=== PATIENT | male | born 2000 | race Caucasian/White ===

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

== ENCOUNTER 2023-09-19 14:32 | Inpatient (IN) | payer OTHER, SELFPAY ==
[2023-09-19 14:41] VITALS: BP 117/64; PULSE 64; RESP 16; TEMP 37; O2SAT 99; BMI 26.7
--- NOTE | 2023-09-19 14:47 | ED.C_ITS ---
HPI - Psych 2 General: Chief Complaint: Psychiatric Symptoms Stated Complaint: mhe Time Seen by Provider: 09/19/23 14:37 History of Present Illness: 23-year-old man with a history of depres griselda is not currently taking medications who presents to the emergency room with expressions of suicidal ideation. 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 Patient says he does not feel suicidal now and he really does not want to stay. We discussed that he has to stay to be evaluated talked with the psychiatrist on-call who says he will need to be admitted at least overnight to be evaluated. Patient agrees to come in under his own accord. He has had no self-harm at this time. He says he had been admitted a long time ago. Review of Systems 2 Narrative: Constitutional symptoms: Negative except as documented in HPI. Skin symptoms: Negative except as documented in HPI. Eye symptoms: Negative except as documented in HPI. ENMT symptoms: Negative except as documented in HPI. Respiratory symptoms: Negative except as documented in HPI. Cardiovascular symptoms: Negative except as documented in HPI. Gastrointestinal symptoms: Negative except as documented in HPI. Genitourinary symptoms: Negative except as documented in HPI. Musculoskeletal symptoms: Negative except as documented in HPI. Neurologic symptoms: Negative except as documented in HPI. Psychiatric symptoms: Negative except as documented in HPI. Endocrine symptoms: Negative except as documented in HPI. PFSH ED 2 PFSH: Social History Current gender identity: Male Physical Exam 2 Narrative: EXAM NARRATIVE: General: Alert, no acute distress. Skin: Warm, dry. Head: Normocephalic, atraumatic. Neck: Supple, trachea midline. Eye: Extraocular movements are intact. Ears, nose, mouth and throat: mucosa moist. Cardiovascular: Regular, Normal peripheral perfusion. Respiratory: Lungs are clear to auscultation, respirations are non-labored, breath sounds are equal, Symmetrical chest wall expansion. Gastrointestinal: Soft, Nontender, Non distended Musculoskeletal: Normal ROM, no deformity. Neurological: Alert and oriented, No focal neurological deficit observed. Psychiatric: Cooperative, appropriate mood & affect. Patient does admit to saying that he was suicidal and having suicidal thoughts earlier but says he does not have any currently. Course 2 Vital Signs: Vital signs: Vital Signs Temperature 98.6 F 09/19/23 14:41 Pulse Rate 61 09/19/23 15:36 Respiratory Rate 16 09/19/23 14:41 Blood Pressure 116/70 09/19/23 15:36 Pulse Oximetry 97 09/19/23 15:36 Oxygen Delivery Me thod Room Air 09/19/23 15:31 MDM - Psych Medical Decision Making Differential diagnosis: Patient with reported depression and suicidal ideation. concerns for infection, alcohol intoxication, cardiac issues or other medical problems prior to psychiatric admission. Workup: labwork ordered to evaluate the pathologies and to clear the patient medically prior to psychiatric admission Lab Review: Laboratory results were reviewed and interpreted by myself the emergency room physician. Lab review: - Medically cleared. - Blood alcohol level is negative, -Tylenol and salicylate levels are negative. - Drug screen is negative - No anemia. - BUN and creatinine are within normal limits. Consultation: I spoke with Dr. Brown who agrees to admission. Assessment and plan: Depression Suicidal ideation -Admission to neuropsychiatric unit for continued evaluation and treatment. - All lab work was reviewed and interpreted personally by myself, the ER physician - Evaluation and treatment of this problem were appropriate in the emergency setting Lab Data 09/19/23 15:46 09/19/23 15:46 Laboratory Results Urine Opiates Screen Negative ng/mL (Negative) 09/19/23 15:21 Ur Barbiturates Screen Negative ng/mL (Negative) 09/19/23 15:21 Ur Phencyclidine Scrn Negative ng/mL (Negative) 09/19/23 15:21 Ur Amphetamines Screen Negative ng/mL (Negative) 09/19/23 15:21 U Benzodiazepines Scrn Negative ng/mL (Negative) 09/19/23 15:21 Urine Cocaine Screen Negative ng/mL (Negative) 09/19/23 15:21 U Marijuana (THC) Screen Negative ng/mL (Negative) 09/19/23 15:21 No radiology studies performed this visit Discharge Plan Discharge Patient Disposition: Admitted As Inpatient Admit Provider: Pablito Brown Clinical Impression: Suicidal ideation Depression Qualifiers: Depression Type: major depressive disorder Major depression recurrence: r ecurrent Active/Remission status: currently active Major depression episode severity: moderate Qualified Code(s): F33.1 - Major depressive disorder, recurrent, moderate Condition: Stable Coding Level of Care Code ED Production Tool Engineer for Vish Jones
[2023-09-19 15:31] VITALS: BP 116/70; PULSE 61; O2SAT 97
[2023-09-19 15:36] VITALS: BP 116/70; PULSE 61; O2SAT 97
[2023-09-19 15:37] LABS: Amphetamines Screen Urine Negative (Negative); Barbiturates Screen Urine Negative (Negative); Benzodiazepines Screen Urine Negative (Negative); Cocaine Screen Urine Negative (Negative); Opiate Screen Urine Negative (Negative); PCP Screen Urine Negative (Negative); THC Screen Urine Negative (Negative)
[2023-09-19 15:53] LABS: Basophils % 0.5 %; Eosinophils % 0.9 %; Hematocrit 45.4 % (37-53); Lymphocytes # 1.1 10^3/uL (0.8-4.8); Lymphocytes % 24.7 %; Mean Corpuscular HGB Conc 33.9 g/dL (30-55); Mean Corpuscular Hemoglobin 32.2 pg (27-33); Mean Corpuscular Volume 94.8 fl (82-101); Mean Platelet Volume 10.1 fL (7.4-10.4); Monocytes # 0.3 10^3/uL (0.2-0.9); Monocytes % 5.9 %; Neutrophils # 3.01 10^3/uL (1.8-7.7); Nucleated Red Blood Cells % 0 %; Platelet Count 190 10^3/cmm (157-399); Red Blood Count 4.79 10^6/uL (3.85-5.65); White Blood Count 4.42 10^3/uL (3.29-11.43)
[2023-09-19 16:13] LABS: Alanine Aminotransferase 26 U/L (0-41); Albumin Level 4.4 g/dL (3.5-5.2); Alkaline Phosphatase 92 U/L (40-130); Aspartate Amino Transferase 20 U/L (0-40); Blood Urea Nitrogen 11 mg/dL (6-20); Calcium 9.1 mg/dL (8.5-10.5); Carbon Dioxide 25 mmol/L (22-29); Chloride 106 mmol/L (98-107); Creatinine Clr Calc Pharmacy 119.2158; Globulin 2.5 g/dL (1.3-4.6); Glomerular Filtration Rate 83.7 mL/min (90-130); Glucose 103 mg/dL (65-115); Osmolality Calculated 290 mOsm/kg (285-295); Sodium 140 mmol/L (136-145); Total Bilirubin 0.6 mg/dL (0.15-1.2); Total Protein 6.9 g/dL (6.6-8.7)
[2023-09-19 16:14] LABS: Acetaminophen < 5.0 ug/mL (10-30); Alcohol Level < 10 mg/dL (0-10); Salicylate < 0.3 mg/dL (3-10)
[2023-09-19 16:15] LABS: Anion Gap 13.7 (5-19); Potassium 4.7 mmol/L (3.5-5.1)
[2023-09-19 16:16] VITALS: BP 121/78; PULSE 56; RESP 16; TEMP 36.4; O2SAT 95
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
[2023-09-19 20:17] VITALS: BP 100/67; PULSE 108; RESP 18; TEMP 36.9; O2SAT 97
[2023-09-20 06:00] VITALS: BP 90/50; PULSE 67; RESP 16; TEMP 37; O2SAT 98
--- NOTE | 2023-09-20 10:00 | PC.NURSE ---
Patient denies anxiety, depression, SI, HI, AVH during morning assessment. Patient said that he doesn't want to be here, that he wants to go home. Patient said that he had one thought of suicide yesterday and talked to his advisor about it. Patient states that the last time he had suicidal thoughts was three years ago. Patient has been at [facility] previously. Patient said that the invega injection he received last time made him dizzy for one week. Patient is not wanting to take medications, says that the only thing he needs is the bible.
--- NOTE | 2023-09-20 10:58 | P.NPUHP_ITS ---
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 the discontinuation of marijuana use who reports having a moment yesterday when he had a suicidal thought that really scared him until he talked to a friend. 1. Continue off of medication and consider whether initiating medication is desired and/or appropriate. 2. Encourage individual, group, and milieu therapy. 3. Continue q-15 minute checks for safety. 4. Obtain collateral information given concerns for safety and that there are some notable differences between his historical reports when alone and other reports in the chart when he is accompanied by family. Involuntary Hold Information 2 96 Hour Hold: 96 Hour Involuntary Admission: No Attestations NPU 2 Medical Necessity Statement*: Inpatient hospitalization is medically necessary and the clinically appropriate intervention, at this time. We will monitor medications and make changes as indicated. Patient will be in the hospital for over two midnights. Likely length of stay is 2-4 days. Coding Level of Care Code Acute Code for [facility] Fwd Diagnoses Autistic spectrum disorder F84.0 Depression F33.1 Active/Remission status: currently active Depression Type: major depressive disorder Major depression episode severity: moderate Major depression recurrence: recurrent Suicidal ideation R45.853
[2023-09-20 13:17] VITALS: BP 107/67; PULSE 63; RESP 16; TEMP 36.4; O2SAT 97
[2023-09-20 21:46] VITALS: BP 96/84; PULSE 63; RESP 16; O2SAT 98
[2023-09-20] MEDS: acetaminophen 325 mg Tablet 650 MG PO (22:41)
[2023-09-21 06:00] VITALS: RESP 15
--- NOTE | 2023-09-21 12:10 | P.NPUPN_ITS ---
Subjective NPU 2 Subjective: 1. Patient presented today reporting th at he is hoping to discharge for some things he is interested in doing on Saturday. He continues to deny any plan to do any follow-up or take any medications. We discussed that there could be benefit from these approaches but he is very fixed on the idea that these things are back and that his previous issues were at least in part due to his marijuana use which he reports he has discontinued. We discussed the importance of him demonstrating self-control on the unit if he wants to be discharged tomorrow. Mental Status Exam 2 MSE Comments: This is a well-nourished, well-developed, white male, in hospital scrubs with adequate grooming and limited eye contact. No abnormal movements except for mild psychomotor retardation. Cooperative with exam in no acute distress. Speech was slightly decreased rate and volume. Mood described as great compared to yesterday; affect slightly subdued. Thought process, organized. Thought content: Patient denies suicidal or homicidal ideation, there were no delusions reported or noted, patient denied any auditory or visual hallucinations. Attention, concentration, and memory appear intact but none were formally tested. He is alert and oriented times three. Insight and judgment are appear fair and impulse control is fair. Vitals/I&O/Wt Last Vital Signs Temp 97.5 F L 09/20/23 13:17 Pulse 63 09/20/23 21:46 Resp 15 09/21/23 06:00 BP 96/84 09/20/23 21:46 Pulse Ox 98 09/20/23 21:46 O2 Del Method Room Air 09/20/23 21:46 Weight last 48 hrs Weight 87.09 kg Data NPU 09/19/23 15:46 09/19/23 15:46 A&P Assessment and plan (1) Autistic spectrum disorder: (2) Depression: Qualifiers: Active/Remission status: currently active Depression Type: major depressive disorder Major depression episode severity: moderate Major depression recurrence: recurrent Qualified Code(s): F33.1 - Major depressive disorder, recurrent, moderate (3) Suicidal ideation: Plan This is a 23year old, white male, with history of depression and psychosis with possible autism spectrum disorder and no reports of psychosis since the discontinuation of marijuana use who reports having a moment yesterday when he had a suicidal thought that really scared him until he talked to a friend. 1. Continue off of medication and consider whether initiating medication is desired and/or appropriate. 2. Encourage individual, group, and milieu therapy. 3. Continue q-15 minute checks for safety. 4. Obtain collateral information given concerns for safety and that there are some notable differences between his historical reports when alone and other reports in the chart when he is accompanied by family. Spoke with grandmother and she seems competent that his behaviors are consistent and not out of control. She is supportive of the idea of him discharging sooner rather than later. She identifies that he refuses to get treatment and that she does not see any vehicle by which to force his hand at this point. She does report however that compared to earlier times in his life like 2 to 3 years ago he has improved and his behavior and is no longer using marijuana which could have been a problem. Involuntary Hold Information 2 96 Hour Hold: 96 Hour Involuntary Admission: No Attestations NPU 2 Medical Necessity Statement*: Inpatient hospitalization is medically necessary and the clinically appropriate intervention, at this time. We will monitor medications and make changes as indicated. Likely length of stay is 1-3 days. Coding Level of Care Code Acute Code for [facility] Fwd Diagnoses Autistic spectrum disorder F84.0 Depression F33.1 Active/Remission status: currently active Depression Type: major depressive disorder Major depression episode severity: moderate Major depression recurrence: recurrent Suicidal ideation R45.851
[2023-09-21 14:00] VITALS: BP 112/76; PULSE 75; RESP 20; TEMP 36.6; O2SAT 97
[2023-09-21 20:42] VITALS: BP 121/74; PULSE 74; RESP 18; TEMP 36.6; O2SAT 96
[2023-09-21] MEDS: acetaminophen 325 mg Tablet 650 MG PO (21:04)
[2023-09-21] MEDS: trazodone 50 mg Tablet PO (21:05)
[2023-09-21] MEDS: hyDROXYzine 25 mg Capsule 50 MG PO (21:05)
[2023-09-22 06:00] VITALS: RESP 15
--- NOTE | 2023-09-22 06:24 | PC.NURSE ---
Vital signs not obtain due to pt resting in bed. Respiration Rate 15. mechanical assembly notified.
--- NOTE | 2023-09-22 09:39 | P.NPUDS_ITS ---
Diagnoses at Discharge Discharge Diagnosis (1) Autistic spectrum disorder: Status: Chronic (2) Depression: Status: Chronic Qualifiers: Active/Remission status: currently active Depression Type: major depressive disorder Major depression episode severity: moderate Major depression recurrence: recurrent Qualified Code(s): F33.1 - Major depressive disorder, recurrent, moderate (3) Suicidal ideation: Status: Acute Reason for Visit Reason for Visit: 96 Involuntary Hold Information 96 Hour Hold: 96 Hour Involuntary Admission: No Mental Status Exam MSE Comments: This is a well-nourished, well-developed, white male, in hospital scrubs with adequate grooming and limited eye contact. No abnormal movements except for mild psychomotor retardation. Cooperative with exam in no acute distress. Speech was slightly decreased rate and volume. Mood described as great compared to yesterday; affect slightly subdued. Thought process, organized. Thought content: Patient denies suicidal or homicidal ideation, there were no delusions reported or noted, patient denied any auditory or visual hallucinations. Attention, concentration, and memory appear intact but none were formally tested. He is alert and oriented times three. Insight and judgment are appear fair and impulse control is fair. Discharge Data Studies Completed and Pending: Laboratory Results WBC 4.42 10^3/uL (3.2 9-11.43) 09/19/23 15:46 RBC 4.79 10^6/uL (3.8 5-5.65) 09/19/23 15:46 Hgb 15.40 g/dL (11.27 -16.99) 09/19/23 15:46 Hct 45.4 % (37-53) 09/19/23 15:46 MCV 94.8 fl (82-101) 09/19/23 15:46 MCH 32.2 pg (27-33) 09/19/23 15:46 MCHC 33.9 g/dL (30-55) 09/19/23 15:46 RDW 12.0 % (12.1-15.1 ) L 09/19/23 15:46 Plt Count 190 10^3/cmm (157 -399) 09/19/23 15:46 MPV 10.1 fL (7.4-10.4 ) 09/19/23 15:46 Neut % (Auto) 68.0 % 09/19/23 15:46 Lymph % (Auto) 24.7 % 09/19/23 15:46 Mcpherson % (Auto) 5.9 % 09/19/23 15:46 Eos % (Auto) 0.9 % 09/19/23 15:46 Baso % (Auto) 0.5 % 09/19/23 15:46 Neut # (Auto) 3.01 10^3/uL (1.8 -7.7) 09/19/23 15:46 Lymph # (Auto) 1.1 10^3/uL (0.8- 4.8) 09/19/23 15:46 Mcpherson # (Auto) 0.3 10^3/uL (0.2- 0.9) 09/19/23 15:46 Eos # (Auto) 0.0 10^3/uL (0.0- 0.8) 09/19/23 15:46 Baso # (Auto) 0.0 10^3/uL (0.0- 0.1) 09/19/23 15:46 Nucleated RBC % (a uto) 0 % 09/19/23 15:46 Nucleated RBCs # 0.0 /100WBC 09/19/23 15:46 Sodium 140 mmol/L (136-1 45) 09/19/23 15:46 Potassium 4.7 mmol/L (3.5-5 .1) 09/19/23 15:46 Chloride 106 mmol/L (98-10 7) 09/19/23 15:46 Carbon Dioxide 25 mmol/L (22-29) 09/19/23 15:46 Anion Gap 13.7 (5-19) 09/19/23 15:46 BUN 11 mg/dL (6-20) 09/19/23 15:46 Creatinine 1.1 mg/dL (0.7-1. 2) 09/19/23 15:46 GFR Calculation 83.7 mL/min (90-1 30) L 09/19/23 15:46 Glucose 103 mg/dL (65-115 ) 09/19/23 15:46 Calculated Osmolal ity 290 mOsm/kg (285- 295) 09/19/23 15:46 Calcium 9.1 mg/dL (8.5-10 .5) 09/19/23 15:46 Total Bilirubin 0.6 mg/dL (0.15-1 .2) 09/19/23 15:46 AST 20 U/L (0-40) 09/19/23 15:46 ALT 26 U/L (0-41) 09/19/23 15:46 Alkaline Phosphata se 92 U/L (40-130) 09/19/23 15:46 Total Protein 6.9 g/dL (6.6-8.7 ) 09/19/23 15:46 Albumin 4.4 g/dL (3.5-5.2 ) 09/19/23 15:46 Globulin 2.5 g/dL (1.3-4.6 ) 09/19/23 15:46 Salicylates < 0.3 mg/dL (3-10 ) L 09/19/23 15:46 Urine Opiates Scre en Negative ng/mL (N egative) 09/19/23 15:21 Acetaminophen < 5.0 ug/mL (10-3 0) L 09/19/23 15:46 Ur Barbiturates Sc reen Negative ng/mL (N egative) 09/19/23 15:21 Ur Phencyclidine S crn Negative ng/mL (N egative) 09/19/23 15:21 Ur Amphetamines Sc reen Negative ng/mL (N egative) 09/19/23 15:21 U Benzodiazepines Scrn Negative ng/mL (N egative) 09/19/23 15:21 Urine Cocaine Scre en Negative ng/mL (N egative) 09/19/23 15:21 U Marijuana (THC) Screen Negative ng/mL (N egative) 09/19/23 15:21 Ethyl Alcohol < 10 mg/dL (0-10) 09/19/23 15:46 Vitals: Last Vital Signs Temp 98 F 09/21/23 20:42 Pulse 74 09/21/23 20:42 Resp 15 09/22/23 06:00 BP 121/74 09/21/23 20:42 Pulse Ox 96 09/21/23 20:42 O2 Del Method Room Air 09/21/23 20:42 Discharge Plan Discharge Patient Disposition: Home Condition: Stable Prescriptions: Continued No Known Home Medications Discharge Orders: Discharge Order (Routine); Ordered 09/22/23 Ordered By: Storm Freire Referrals[facility] [Other] Kaia Laws NP [Primary Care Provider] - Discharge Diet: Regular Discharge Activity: Resume usual activity Patient Instructions: Opioid Safety Discharge Attestations NPU Time Spent in Discharge Care*: less than 30 min Specific Discharge Activities: Specific discharge activities: educating patient, discussing with clinical case manager/social workers/dc planners, documenting/other paperwork and evaluating patient/reviewing data Coding Level of Care Code Acute Code for [facility] Fwd Diagnoses Autistic spectrum disorder F84.0 Depression F33.1 Active/Remission status: currently active Depression Type: major depressive disorder Major depression episode severity: moderate Major depression recurrence: recurrent Suicidal ideation R45.852
[2023-09-22 09:50] VITALS: BP 121/74; PULSE 74; RESP 15; TEMP 36.6; O2SAT 96
== END 2023-09-22 10:30 | disposition home or self-care (01) | DRG 885 ==
LOC: ER 14:47 → NP 15:25
PROVIDERS: Admitting Provider Psychiatry & Neurology Psychiatry; Emergency Provider Emergency Medicine; PCP Nurse Practitioner Family; Visit Provider Psychiatry & Neurology Psychiatry
DX: F33.1 Major depressive disorder, recurrent, moderate (principal); R45.851 Suicidal ideations; F84.0 Autistic disorder; F90.9 Attention-deficit hyperactivity disorder, unspecified type; F17.290 Nicotine dependence, other tobacco product, uncomplicated; Z81.8 Family history of other mental and behavioral disorders
CPT/HCPCS: 80053; 80306; 80307; 85025; 97165; 99285